=== PATIENT | male | born 1990 | race Caucasian/White ===

== ENCOUNTER 2021-10-04 18:19 | Emergency (ER) | payer OTHER ==
[2021-10-04] MEDS ORDERED: Ibuprofen 800 MG TAB ONE (19:03)
== END 2021-10-04 19:18 | disposition home or self-care (01) ==
LOC: MADERS 18:19
DX: R09.1 Pleurisy (principal); R05.9 Cough, unspecified; F17.210 Nicotine dependence, cigarettes, uncomplicated
CPT/HCPCS: 71045

== ENCOUNTER 2023-04-17 15:05 | Emergency (ER) | payer BC, OTHER ==
[2023-04-17 16:51] LABS: SARS-CoV-2 NAA Rapid Test DETECTED (NotDetected)
== END 2023-04-17 17:15 | disposition home or self-care (01) ==
LOC: MADERS 15:05
DX: U07.1 COVID-19 (principal)
CPT/HCPCS: 87081; 87430; 87804; 99283; U0002